=== PATIENT | male | born 1955 | race Caucasian/White ===

== ENCOUNTER → 2016-11-08 | Outpatient (CLI) | payer OTHER ==
--- NOTE | 2016-11-08 16:11 | REP ---
KUB ABDOMEN AND PELVIS: KUB film of the abdomen and pelvis is performed. There is a nonobstructive bowel gas pattern. Multiple phleboliths are seen throughout the pelvis. Evaluation for calcifications involving the kidneys is limited due to overlying bowel gas and fecal material. There are mild degenerative changes of the spine. IMPRESSION: Multiple phleboliths in the pelvis. Signed by Ranjeet Ibrahim MD 11/08/2016 05:07 P
== END ==
LOC: M SMT 14:55
PROVIDERS: ATTEND Urology
DX: N20.0 Calculus of kidney (principal)

== ENCOUNTER → 2016-11-08 | Outpatient (REF) | payer OTHER | LOC: M SMT 17:08 | PROVIDERS: ATTEND Urology | DX: N20.0 Calculus of kidney (principal) ==